=== PATIENT | male | born 1960 | race African-American/Black ===

== ENCOUNTER 2023-10-01 15:03 | Emergency (ER) | payer BC ==
[~2023-10-01] VITALS: Ht 182.9 cm; Wt 90.7 kg
[2023-10-01] MEDS ORDERED: TAMS-3 PO (15:26)
[2023-10-01 15:46] LABS: BASOPHILS % (AUTO) 0.7 % (0.0-2.0); EOSINOPHILS % (AUTO) 0.3 % (0.0-7.0); HEMATOCRIT 45.9 % (36.7-47.1); HEMOGLOBIN 14.9 g/dL (12.5-16.3); LYMPHOCYTES % (AUTO) 15.2 % (20.5-51.5); MEAN CORPUSCULAR HEMOGLOBIN 29.3 uug (23.8-33.4); MEAN CORPUSCULAR HGB CONC 32 g/dL (32.5-36.3); MEAN CORPUSCULAR VOLUME 90.5 fL (73.0-96.2); MONOCYTES # (AUTO) 0.4 K/uL (0.1-1.30); NEUTROPHILS # (AUTO) 5.3 K/uL (1.8-8.9); NEUTROPHILS % (AUTO) 77.8 % (38.5-71.5); PLATELET COUNT (AUTO) 156 K/uL (152-348); RED BLOOD CELL COUNT(AUTO) 5.07 MIL/uL (4.06-5.63); RED CELL DISTRIBUTION WIDTH 14.2 % (12.1-16.2); WHITE BLOOD COUNT (AUTO) 6.8 K/uL (3.6-10.2)
[2023-10-01 15:50] LABS: DIFFERENTIAL COMMENT 1
[2023-10-01 16:00] LABS: ETHANOL < 3 MG/DL (0-10)
[2023-10-01 16:01] LABS: AMMONIA 33 umol/L (11-32)
[2023-10-01 16:08] LABS: *BILIRUBIN,URIN NEGATIVE (NEGATIVE); *BLOOD, URINE 2+ (NEGATIVE); *CLARITY,URINE CLEAR (CLEAR); *COLOR,URINE YELLOW (YELLOW); *KETONES,URINE NEGATIVE (NEGATIVE); *PROTEIN,URINE 2+ (NEGATIVE); *UROBILINOGEN,URINE 0.2 E.U./dl (NORMAL); LEUKOCYTE ESTERASE ,URINE NEGATIVE (NEGATIVE); NITRITE, URINE NEGATIVE (NEGATIVE); UGLUCOSE NEGATIVE (NEGATIVE)
[2023-10-01 16:10] LABS: ALANINE AMINOTRANSFERASE 65 U/L (16-63); ALBUMIN 3.8 g/dL (3.4-5.0); ALKALINE PHOSPHATASE 100 U/L (50-136); ASPARTATE AMINOTRANSFERASE 33 U/L (15-37); BILIRUBIN,DIRECT 0.1 mg/dL (0.0-0.2); BILIRUBIN,TOTAL 0.4 mg/dL (0.2-1.0); CALCIUM 8.9 mg/dL (8.5-10.1); CARBON DIOXIDE 19 mmol/L (21-32); CHLORIDE 103 mmol/L (98-107); CREATININE 1.4 mg/dL (0.6-1.3); GLUCOSE 114 mg/dL (74-106); POTASSIUM 3.4 mmol/L (3.5-5.1); SODIUM SERUM 139 mmol/L (136-145); TOTAL PROTEIN, SERUM 7.8 g/dL (6.4-8.2); UREA NITROGEN, BLOOD 22 mg/dL (7-18)
[2023-10-01 16:14] LABS: ACETAMINOPHEN < 2.0 ug/mL (10-30); THYROID STIMULATING HORMONE 0.983 mIU/mL (0.358-3.740)
[2023-10-01 16:17] LABS: LACTIC ACID 6.7 mmol/L (0.4-2.0)
[2023-10-01 16:21] LABS: *AMPHETAMINE, URINE NEGATIVE (NEGATIVE); *BARBITURATE, URINE NEGATIVE (NEGATIVE); *BENZODIAZEPINE, URINE NEGATIVE (NEGATIVE); *CANNABINOID, URINE NEGATIVE (NEGATIVE); *COCCAINE, URINE NEGATIVE (NEGATIVE); *OPIATE, URINE NEGATIVE (NEGATIVE); *PHENCYCLIDINE SCREEN,URINE NEGATIVE (NEGATIVE); BACTERIA,URINE NONE SEEN /HPF (NONE SEEN); FENTANYL, URINE NEGATIVE (NEGATIVE); RBC,URINE 0-3 /HPF (0-3); SQUAMOUS EPITHELIAL CELL,UR NONE SEEN /HPF (NONE SEEN); WBC,URINE 0-3 /HPF (0-3)
[2023-10-01] MEDS ORDERED: ZONISAMIDE 100 MG CAPSULE ONE (17:38)
[2023-10-01] MEDS: ZONISAMIDE 100 MG CAPSULE PO STA (17:39)
[2023-10-01 18:52] VITALS: BP 137/66; O2SAT 98
== END 2023-10-01 18:53 | disposition home or self-care (01) ==
LOC: ER 15:05
DX: G40.909 Epilepsy, unspecified, not intractable, without status epilepticus (principal); Z79.899 Other long term (current) drug therapy
CPT/HCPCS: 36415; 70450; 71045; 83605; 84443; 84484; 85025; 85730; 87040; 93005; A4606; A4663; G0480; J8499